=== PATIENT | female | born 1980 | race Hispanic/Latino ===

== ENCOUNTER 2016-11-10 23:37 | Emergency (ER) | payer OTHER ==
[~2016-11-10] VITALS: Ht 157.5 cm; Wt 56.7 kg
[2016-11-10 23:55] VITALS: BP 109/72
--- NOTE | 2016-11-11 00:40 | ED GENERAL ADULT ---
See Addendum History of Present Illness General Chief Complaint: General Adult Stated Complaint: "PER PT SUGER IS 322 AT HOME" Source: patient Exam Limitations: no limitations Vital Signs & Intake/Output Vital Signs & Intake/Output Vital Signs Date Time Temp Pulse Resp B/P B/P Pulse O2 O2 Flow FiO2 Mean Ox Delivery Rate 11/10 2355 98.0 76 18 109/72 98 Room Air ED Intake and Output 11/11 0000 11/10 1200 Intake Total Output Total Balance Patient 56.699 kg Weight Weight Reported by Patient Measurement Method Allergies Coded Allergies: shellfish derived (Intermediate, HIVES/ ITCHING 11/10/16) Reconcile Medications Butalb/Acetaminophen/Caffeine (Fioricet 50-300-40 MG Capsule) 50 MG-300 MG-40 MG CAPSULE 1 TAB PO Q4H PRN MIGRAINES (Reported) Ibuprofen 800 MG TABLET 1 TAB PO TID MIGRAINES (Reported) Triage Note: TRIAGE: PATIENT TO ER FROM HOME REPORTING NO HX DIABETES, THOUGH REPORTING INTERMITTENT MIGRAINES, "SO I THOUGH IT MAYBE WAS MY SUGAR SO I CHECKED IT AND IT WAS 322." LAST MEAL APPROX 5PM TONIGHT. +SWANSON AND NAUSEOUSNESS AT THIS TIME. CURRENT FINGERSTICK:133. Triage Nurses Notes Reviewed? yes : No Patient currently breastfeeds: No HPI: This is a 35-year-old female with past medical history significant for migraines on Fioricet, who comes in for chief complaint of elevated blood sugar. Patient states that she atrophic Route trigger for her migraines and during an episode she took her blood sugar with resulting reading of 322. Patient does not carry a diagnosis of diabetes, as such she was considerably elevated blood sugar came to ED. In the ED repeat fingerstick showed 133. Patient states her headache is much improved. Patient did state that she has extensive family history of diabetes and she does have some polyuria and polydipsia at this time. I counseled patient that she needs to follow up with her PCP to pursue further workup for diabetes mellitus such as an A1c or fasting blood sugar studies. In ED her vitals stable and she denies any complaints; such, no further workup warranted. Past History Travel History Traveled to [place] past 21 day No Medical History Any Pertinent Medical History? 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 Yes Review of Systems Review of Systems Constitutional: Denies: chills, diaphoresis, fever, malaise, weakness. EENTM: Denies: blurred vision, visual changes. Respiratory: Denies: cough, short of breath, wheezing. Cardiovascular: Denies: chest pain. GI: Reports: no symptoms. Genitourinary: Reports: frequency. Musculoskeletal: Reports: no symptoms. Skin: Reports: no symptoms. Physical Exam Physical Exam General Appearance: well developed/nourished, no apparent distress, alert, awake , comfortable Head: atraumatic, normal appearance Eyes: Bilateral: normal appearance. Ears, Nose, Throat: normal pharynx, normal ENT inspection Neck: normal inspection Respiratory: normal breath sounds, chest non-tender, no respiratory distress, quiet respiration, lungs clear Cardiovascular: regular rate/rhythm Gastrointestinal: soft, non-tender, no abdominal pain, rebound, or guarding Back: normal inspection Extremities: normal inspection, no edema Core Measures ACS in differential dx? No CVA/TIA Diagnosis: No Severe Sepsis Present: No Septic Shock Present: No Progress Differential Diagnoses I considered the following diagnoses in my evaluation of the patient: [, diabetes, hyperglycemia,] Plan of Care: Patient will follow up with her primary care physician regarding workup for a diagnosis of diabetes Initial ED EKG: none Departure Departure Disposition: HOME OR SELF CARE Condition: Stable Clinical Impression Primary Impression: Hyperglycemia Referrals: SUSAN CAGE MD (PCP/Family) Additional Instructions: 1. Please follow up PCP in the enxt 48 hrs regarding elevated blood sugars. 2. If her condition worsens or if you experience any headache nausea vomiting or fever please return back to the ED Departure Forms: Customer Survey General Discharge Information Critical Care Note Critical Care Note Critical Care Time: non-applicable
[2016-11-11] MEDS ORDERED: IBUPROFEN800 M1 PO (00:49)
[2016-11-11] MEDS ORDERED: FIORICET 50-301 EACH PO (00:50)
== END 2016-11-11 00:59 ==
LOC: ERH 23:37
DX: R73.9 Hyperglycemia, unspecified (principal)